=== PATIENT | male | born 1960 | race Caucasian/White ===

== ENCOUNTER 2018-02-15 19:49 | Emergency (ER) | payer OTHER ==
[2018-02-15 19:54] VITALS: BP 120/74
[2018-02-15] MEDS ORDERED: TDAP ADULT 0.5 ML INJ (BOOSTRIX) IM ONE (20:01)
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
[2018-02-15] MEDS ORDERED: DOXYCYCLINE HYCLATE 100 MG CAP/TAB PO ONE (21:01)
== END 2018-02-15 21:12 | disposition home or self-care (01) ==
DX: S51.011A Laceration without foreign body of right elbow, initial encounter (principal); Z23 Encounter for immunization; V18.0XXA Pedal cycle driver injured in noncollision transport accident in nontraffic accident, initial encounter; Y92.9 Unspecified place or not applicable; R07.81 Pleurodynia

== ENCOUNTER 2018-03-22 09:20 | Day surgery (SDC) | payer OTHER ==
--- NOTE | 2018-03-21 07:43 | GHP ---
DATE OF ADMISSION: 03/22/2018 DATE OF PLANNED PROCEDURE: 03/22/2018. PREOPERATIVE DIAGNOSIS: Left shoulder glenoid labral tear with paralabral spinal glenoid notch cyst. PLANNED PROCEDURE: Glenoid labrum repair with decompression of a spinoglenoid notch cyst, open versu s arthroscopic. 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 Initially we thought this was rotator cuff tear. We proceeded with an MR I which showed an intact cuff but a spinoglenoid notch cyst impinging on the suprascapular nerve, as well as a glenoid labrum tear. Decision was made to proceed with an arthroscopic labrum repair and a n open versus arthroscopic spinoglenoid notch cyst decompression. PRIOR MEDICAL HISTORY: Sleep apnea, migraines. PRIOR SURGICAL HISTORY: None. MEDICATIONS: Sumatriptan 100 mg tablet. ALLERGIES: Bee venom. No drug allergies. 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 Lives in town. He is active in biking, hiking and skiing. REVIEW OF SYSTEMS: No shortness of breath or chest pain. Otherwise, review of systems is unremarkab le. PHYSICAL EXAM: Healthy 58-year-old male. VITAL SIGNS: He is 5 feet 9 inches tall, weighs 145 pound s. GENERAL: Alert and oriented x3. HEENT: Normocephalic, atraumatic. Extraocular muscles intact. NECK: Supple. There is no lymphadenopathy. No JVD. CHEST: Clear to auscultation. CARDIOVASCUL AR: Regular rate and rhythm. ABDOMEN: Soft, nontender, nondistended. No hepatosplenomegaly. EXTR EMITIES: Left shoulder: He does have full range of motion of the shoulder from full extension to 17 0 degrees of forward flexion, 75 degrees of external rotation. Internal rotation again is found to b e at 1. He has weakness more in the infraspinatus, which is 4-/5. Supraspinatus is 4/5. Subscapula ris 4+/5. He does have a positive Speed and Yergason test. IMAGING: MRI as well as EMG are reviewed. MRI shows glenoid labral tear around the 11 to 1 o'clock position. There is a spinal glenoid notch cyst. EMG also is consistent with a suprascapular nerve p alsy. 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 PLAN: I recommend proceeding with an arthroscopic labral repair and an open versus arthroscopic notc h cyst. We discussed this. The cyst does appear septated on the MRI, so we want to be sure we can d ecompress the entirety of the cyst through the scope. If we cannot, we will open as well and decompr ess the cyst through an open incision. Risks and benefits including continued weakness despite decom pression of the nerve, as well as stiffness following the labral repair were all discussed. Jarocho n was discussed as well. He understands these risks and wishes to proceed. We will plan on surgery Thursday at the hospital. /[id number]/MODL
[2018-03-22] MEDS ORDERED: EPINEPHrine 1 MG/ML INJ ONE (09:32)
[2018-03-22] MEDS ORDERED: LIDOCAINE 1% 300 MG/30 ML SDV ONE (09:32)
[2018-03-22] MEDS ORDERED: BUPIVACAINE/EPI 0.5% 30 ML SDV ONE (09:32)
[2018-03-22] MEDS ORDERED: EPINEPHrine 30 MG/30 ML MDV (0.1 MG/0.1 ML) ONE (09:32)
[2018-03-22] MEDS ORDERED: ceFAZolin 2 GM/DEXTROSE 100 ML IV ONE (09:42)
[2018-03-22] MEDS ORDERED: LIDOCAINE 1% 2 ML INJ ONE (09:59)
[2018-03-22] MEDS ORDERED: PROPOFOL/EMULSION 500 MG/50 ML BOTTLE IV ONE (10:05)
[2018-03-22] MEDS ORDERED: fentaNYL 250 MCG/5 ML INJ ONE (10:08)
[2018-03-22] MEDS ORDERED: LR 1,000 ML IV ONE (10:09)
[2018-03-22] MEDS ORDERED: LIDOCAINE 1% 2 ML INJ ID ONE (10:09)
--- NOTE | 2018-03-22 10:09 | PDHPUP ---
History & Physical Update H&P update statement: This history and physical update is based on an assessment of the patient which was completed after admission or registration (within 24 hours), but prior to the surgery/procedure. H&P update: H&P reviewed & patient examined, no change in patient's condition since H&P completed
[2018-03-22] MEDS ORDERED: MIDAZOLAM 2 MG/2 ML VIAL ONE (10:10)
[2018-03-22] MEDS ORDERED: MIDAZOLAM 2 MG/2 ML VIAL IVP ONE (10:14)
--- NOTE | 2018-03-22 10:36 | PDANEPAE ---
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 ANE Past Medical History - Cardiovascular History Hx Hypertension: No Hx Arrhythmias: No Hx Chest Pain: No Hx Coronary Artery / Peripheral Vascular Disease: No Hx CHF / Valvular Disease: No Hx Palpitations: No - Pulmonary History Hx COPD: No Hx Asthma/Reactive Airway Disease: No Hx Recent Upper Respiratory Infection: No Hx Oxygen in Use at Home: No Hx Sleep Apnea: Yes Sleep Apnea Screening Result - Last Documented: Positive Pulmonary History Comment: UMA + - Neurologic History Hx Cerebrovascular Accident: No Hx Seizures: No Hx Dementia: No Neurologic History Comment: Migraines - Endocrine History Hx Diabetes: No - Renal History Hx Renal Disorders: No - Liver History Hx Hepatic Disorders: No - Neurological & Psychiatric Hx Hx Neurological and Psychiatric Disorders: No - Cancer History Hx Cancer: No - Congenital Disorder History Hx Congenital Disorders: No - GI History Hx Gastrointestinal Disorders: No - Other Health History Other Health History: glasses for reading. chronic low back issues. left shoulder arthritis - Chronic Pain History Chronic Pain: Yes (back pain) - Surgical History Prior Surgeries: colonoscopy ANE Review of Systems Review of systems is: negative Review of Systems: - Exercise capacity METS (RN): 5 METS ANE Patient History - Allergies Allergies/Adverse Reactions: bee venom protein (honey bee) Allergy (Verified 02/15/18 19:52) - Home Medications Home Medications: IMITREX 02/15/18 [Last Taken 03/19/18] VYVANSE 02/15/18 [Last Taken 03/20/18] - NPO status NPO Since - Liquids (Date): 03/21/18 NPO Since - Liquids (Time): 22:00 NPO Since - Solids (Date): 03/21/18 NPO Since - Solids (Time): 22:00 - Smoking Hx Smoking Status: Never smoked - Family Anes Hx Family Hx Anesthesia Complications: none ANE Labs/Vital Signs - Vital Signs Blood Pressure: 103/83 Heart Rate: 55 Respiratory Rate: 14 O2 Sat (%): 95 Height: 172.72 cm Weight: 65.771 kg ANE Physical Exam - Airway Neck exam: FROM Mallampati Score: Class 2 Mouth exam: normal dental/mouth exam - Pulmonary Pulmonary: no respiratory distress - Cardiovascular Cardiovascular: regular rate and rhythym - ASA Status ASA Status: I ANE Anesthesia Plan Anesthesia Plan: general endotracheal anesthesia
[2018-03-22] MEDS ORDERED: MEPERIDINE 25 MG/0.5 ML AMP IVP PRN (10:53)
[2018-03-22] MEDS ORDERED: NALOXONE HCL 0.4 MG/ML INJ IVP PRN (10:53)
[2018-03-22] MEDS ORDERED: ONDANSETRON 4 MG/2 ML VIAL IVP PRN ×2 (10:53→11:41)
[2018-03-22] MEDS ORDERED: HYDROCODONE/APAP 5/325 TAB PO PRN (10:53)
[2018-03-22] MEDS ORDERED: LABETALOL HCL 5 MG/ML 20 ML MDV IVP PRN (10:53)
[2018-03-22] MEDS ORDERED: fentaNYL 100 MCG/2 ML INJ IVP PRN (10:53)
[2018-03-22] MEDS ORDERED: ALBUTEROL 3 ML DEYVIAL IH PRN (10:53)
[2018-03-22] MEDS ORDERED: NS 500 ML IV PRN (10:53)
[2018-03-22] MEDS ORDERED: PROMETHAZINE HCL 25 MG/ML INJ IVP PRN (10:53)
[2018-03-22] MEDS ORDERED: LR 500 ML IV PRN (10:53)
[2018-03-22] MEDS ORDERED: METOCLOPRAMIDE 10 MG/2 ML VIAL IVP PRN (10:53)
[2018-03-22] MEDS ORDERED: DEXAMETHASONE 4 MG/ML VIAL IVP PRN (10:53)
[2018-03-22] MEDS ORDERED: oxyCODONE IR 5 MG TAB PO PRN (10:53)
[2018-03-22] MEDS ORDERED: CALCIUM CHLORIDE 1 GM/10 ML INJ ONE (11:00)
[2018-03-22] MEDS ORDERED: THROMBIN (BOVINE) 5,000 UNIT VIAL TP ONE (11:00)
[2018-03-22] MEDS ORDERED: OXYCODONE/APAP 5/325 TAB PO PRN (11:41)
[2018-03-22] MEDS ORDERED: ACETAMINOPHEN 325 MG TAB PO PRN (11:41)
--- NOTE | 2018-03-22 11:41 | POSTOPPROG ---
Post Op Note Date of Operation: 03/22/18 Surgeon: Odell Guzman Manager Games: Abigail Carrera PA-C Anesthesia: GET(General Endotracheal) Pre-op Diagnosis: Left shoulder labral tear, paralabral cyst Post-op Diagnosis: Left shoulder labral tear, paralabral cyst Procedure: Left shoulder arthroscopy with labral repair, cyst decompression Inf/Abcess present in the surg proc area at time of surgery?: No Depth: Superfical (Skin SQ) EBL: Minimal
--- NOTE | 2018-03-22 13:26 | POSTANESTH ---
Post Anesthetic Evaluation Cardiovascular Status: Normal, Stable Respiratory Status: Normal, Stable Level of Consciousness/Mental Status: Mildly Sleepy, Arousable Pain Control: Adequate, Prn Tx Ordered Nausea/Vomiting Control: Adequate, Prn Tx Ordered Complications Possibly Related to Anesthesia: None Noted
[2018-03-22 13:36] VITALS: BP 120/82
--- NOTE | 2018-03-22 14:21 | GOP ---
DATE OF OPERATION: 03/22/2018 SURGEON: Odell Guzman MD CONTINUOUS PILLOWCASE CUTTER: Abigail Carrera PA-C ANESTHESIA: General. ANESTHESIOLOGIST: Dr. Ohara PREOPERATIVE DIAGNOSIS: Left shoulder labral tear with paralabral cyst and suprascapular nerve compr ession. POSTOPERATIVE DIAGNOSIS: Left shoulder labral tear with paralabral cyst and suprascapular nerve comp ression. PROCEDURE PERFORMED: 1. Arthroscopic ganglion cyst decompression at the spinal glenoid notch. 2. Arthroscopic labral repair. FINDINGS: INDICATIONS: The patient is a 58-year-old male who developed weakness in his left shoulder. Initial ly was thought to have a rotator cuff tear. MRI was obtained, which showed a paralabral cyst compress ing the suprascapular nerve at the spinal glenoid notch. Decision was made to proceed with a labral r epair and a ganglion cyst suprascapular nerve decompression. DESCRIPTION OF PROCEDURE: After appropriate informed consent was obtained, patient was taken to the operating room, placed supine on the operating table. Time-out was performed. Patient was identified, correct site was identified and matched with MRI that was available in the room. He received 2 g of Ancef preoperatively. Following general endotracheal tube anesthesia, he was positioned in the beach chair position with all bony prominences well padded. Left upper extremity was prepped and draped in usual sterile fashion. I instilled 30 mL of 1% lidocaine with epinephrine, then 30 mL of normal salin e through the standard posterior portal. I made a small jaja incision, introduced the camera through a standard portal and then obtained a sta ndard anterior portal under direct visualization. A 5 mm working cannula was placed through there. He had full-thickness cartilage loss on the humeral head and glenoid. There was a tear of the superior labrum. I then obtained a superior portal under direct visualization and placed an 8 mm working cannu la through there. Behind the labrum and working medially, I bluntly dissected the tissues back using a combination of a n elevator and electrocautery. The suprascapular artery and nerve were both identified. There was a g anglion cyst lying between them. I was able to debride this using a motorized shaver being careful to protect the nerve throughout the entirety of the procedure. I was able to get the entirety of the cy st decompressed, then I turned my attention to the labral tear. Using a round bur, I roughened up the superior glenoid rim and then 2 sutures were passed through the superior aspect of the labrum looped back on itself. 2 drill holes were made and then 2 anchors were placed in the superior aspect of the glenoid rim securely affixing the labrum back to the glenoid. Suture ends were cut. I instilled 30 m L of normal saline through the standard posterior portal, as well as 5 mL of PRP at the repair site. Instrumentation was removed. The portal incisions were closed with 3-0 nylon. The patient was awakene d from anesthesia, taken to the recovery room in satisfactory condition. There were no immediate intr aoperative complications. Abigail Carrera's assistance was required throughout the entire case. IMPLANTS USED: Arthrex 2.9 mm PushLock anchors x2. COMPLICATIONS: None. DRAINS: None. /[id number]/MODL
== END 2018-03-22 13:30 | disposition home or self-care (01) ==
LOC: FSGY 09:20
PROVIDERS: ATTEND Orthopaedic Surgery
DX: S43.432D Superior glenoid labrum lesion of left shoulder, subsequent encounter (principal); M71.312 Other bursal cyst, left shoulder
CPT/HCPCS: C1713; J0171; J0690; J2250; J2704; J3010